=== PATIENT | male | born 1985 | race African-American/Black ===

== ENCOUNTER 2020-06-02 15:26 | Emergency (ER) | payer MEDICAID, OTHER ==
[2020-06-02] MEDS ORDERED: Metoclopramide HCl 10 MG/2 ML VIAL ONE (15:50)
[2020-06-02] MEDS ORDERED: diphenhydrAMINE 50 MG/ML VIAL ONE (15:50)
== END 2020-06-02 17:25 | disposition home or self-care (01) ==
LOC: NAV ERS 15:26
DX: G43.909 Migraine, unspecified, not intractable, without status migrainosus (principal)
CPT/HCPCS: 96365; 96375; J1200; J2765

== ENCOUNTER 2020-06-11 07:53 | Emergency (ER) | payer MEDICAID, OTHER ==
[2020-06-11] MEDS ORDERED: diphenhydrAMINE 50 MG/ML VIAL ONE (08:20)
[2020-06-11] MEDS ORDERED: Metoclopramide HCl 10 MG/2 ML VIAL ONE (08:20)
[2020-06-11] MEDS ORDERED: Sodium Chloride 0.9% 1,000 ML ONE ×2 (08:21→08:51)
--- NOTE | 2020-06-11 08:28 | RAD ---
XR Chest 1 View Portable History: Chest pain Comparison: None. Findings: Lungs are clear. No pneumothorax or effusion. Cardiac silhouette and mediastinal contours a re within normal limits. No acute osseous abnormality. Impression: No acute intrathoracic abnormality.
[2020-06-11 08:30] LABS: #Basophils 0.1 thou/uL (0.0-0.2); #Eosinphils 0.4 thou/uL (0.0-0.7); #Lymphocytes 3.1 thou/uL (1.20-3.40); #Monocytes 0.7 thou/uL (0.11-0.59); #Neutrophils 2.1 thou/uL (1.40-6.50); %Basophils 1.4 % (0.0-1.0); %Eosinophils 5.6 % (0.0-10.0); %Lymphocytes 48.8 % (21.0-51.0); %Neutrophils 33.3 % (42.0-75.0); Hemoglobin 12.2 g/dL (14.0-18.0); Mean Corpuscular HGB CONC 30.3 g/dL (32.0-36.0); Mean Corpuscular Hemoglobin 23.5 pg (27.0-31.0); Mean Corpuscular Volume 77.5 fL (78.0-98.0); Mean Platelet Volume 8.9 fL (7.4-10.4); Platelet Count 279 thou/uL (130-400); RBC Distribution Width 16.5 % (11.5-14.5); White Blood Cell (WBC) Count 6.4 thou/uL (4.8-10.8)
--- NOTE | 2020-06-11 08:40 | CT ---
CT Brain WO Con History: Headache Comparison: None. Findings: No acute hemorrhage or infarct. No midline shift or mass effect. Ventricular size and extra -axial CSF spaces are normal. Calvarium is intact. Paranasal sinuses and mastoids are clear. Impression: No acute intracranial abnormality.
[2020-06-11 08:41] LABS: ALT (SGPT) 22 U/L (8-55); AST (SGOT) 23 U/L (5-34); Albumin 4.5 g/dL (3.5-5.0); Alkaline Phosphatase 71 U/L (40-110); Anion Gap 16 mmol/L (10-20); BUN (Urea Nitrogen) 11 mg/dL (8.9-20.6); Bilirubin, Total 0.4 mg/dL (0.2-1.2); CK (CPK) 258 U/L (30-200); Calc. Creatinine Clearance 0 mL/min (70-130); Calcium 9.2 mg/dL (7.8-10.44); Carbon Dioxide 23 mmol/L (22-29); Chloride 106 mmol/L (98-107); Globulin 2.9 g/dL (2.4-3.5); Glucose 131 mg/dL (70-105); Lipase 32 U/L (8-78); Protein, Total 7.4 g/dL (6.0-8.3); Sodium 141 mmol/L (136-145)
[2020-06-11] MEDS ORDERED: Magnesium 2 GM/50 ML BAG (IN WATER) ONE (08:49)
[2020-06-11] MEDS ORDERED: methylPREDNISolone Sod Succ/PF 125 MG/2 ML VIAL ONE (08:49)
[2020-06-11 10:55] LABS: Amphetamine Not Detected (NotDetected); Barbiturates Screen Not Detected (NotDetected); Benzodiazepine Screen Not Detected (NotDetected); Cocaine Metabolite Screen Not Detected (NotDetected); Medtox Control Line Valid? VALID (VALID); Methadone Not Detected (NotDetected); Methamphetamine Not Detected (NotDetected); Opiate Screen Not Detected (NotDetected); Oxycodone Screen Not Detected (NotDetected); Phencyclidine (PCP) Not Detected (NotDetected); THC/Cannabinoid Screen Detected (NotDetected); Tricyclic Screen Not Detected (NotDetected)
== END 2020-06-11 10:39 | disposition home or self-care (01) ==
LOC: NAV ERS 07:53
DX: R51.9 Headache, unspecified (principal)
CPT/HCPCS: 36415; 70450; 71045; 80053; 80306; 82550; 83690; 84484; 85025; 93005; 96365; 96367; 96375; J1200; J2765; J2930; J3475; J7050

== ENCOUNTER 2021-01-18 03:25 | Emergency (ER) | payer MEDICAID ==
[2021-01-18] MEDS ORDERED: Ibuprofen 200 MG TAB ONE (15:46)
== END 2021-01-18 16:11 | disposition home or self-care (01) ==
LOC: NAV ERS 15:25
DX: M79.674 Pain in right toe(s) (principal); G43.909 Migraine, unspecified, not intractable, without status migrainosus
CPT/HCPCS: 99283

== ENCOUNTER 2021-11-07 17:28 | Emergency (ER) | payer MEDICAID ==
[2021-11-07] MEDS ORDERED: diphenhydrAMINE 50 MG/ML VIAL ONE (18:18)
[2021-11-07] MEDS ORDERED: Prochlorperazine 10 MG/2 ML VIAL ONE (18:18)
[2021-11-07] MEDS ORDERED: Sodium Chloride 0.9% 1,000 ML ONE (18:18)
[2021-11-07] MEDS ORDERED: Ketorolac Tromethamine 30 MG/ML VIAL ONE (18:18)
== END 2021-11-07 20:00 | disposition home or self-care (01) ==
LOC: NAV ERS 17:28
DX: G43.909 Migraine, unspecified, not intractable, without status migrainosus (principal)
CPT/HCPCS: 99284; J0780; J1200; J1885; J7050

== ENCOUNTER 2021-11-22 00:06 | Emergency (ER) | payer MEDICAID ==
[2021-11-22] MEDS ORDERED: Ondansetron ODT 4 MG TAB ONE (00:17)
[2021-11-22] MEDS ORDERED: Acetaminophen 325 MG TAB ONE (00:22)
[2021-11-22] MEDS ORDERED: Ketorolac Tromethamine 60 MG/2 ML VIAL ONE (00:22)
[2021-11-22] MEDS ORDERED: diphenhydrAMINE 50 MG/ML VIAL ONE (00:43)
[2021-11-22] MEDS ORDERED: Metoclopramide HCl 10 MG/2 ML VIAL ONE (00:43)
== END 2021-11-22 01:09 | disposition home or self-care (01) ==
LOC: NAV ERS 00:06
DX: G43.909 Migraine, unspecified, not intractable, without status migrainosus (principal); J06.9 Acute upper respiratory infection, unspecified; R11.2 Nausea with vomiting, unspecified; S01.111D Laceration without foreign body of right eyelid and periocular area, subsequent encounter; Z79.899 Other long term (current) drug therapy
CPT/HCPCS: 96372; 99284; J1200; J1885; J2765; Q0162; U0003; U0005

== ENCOUNTER 2024-04-13 15:45 | Emergency (ER) | payer BC, SELFPAY | END 2024-04-13 16:40 | disposition home or self-care (01) | LOC: NAV ERS 15:45 | DX: S01.511A Laceration without foreign body of lip, initial encounter (principal); W51.XXXA Accidental striking against or bumped into by another person, initial encounter; Y93.72 Activity, wrestling | CPT/HCPCS: 99282 ==

== ENCOUNTER 2024-06-04 08:19 | Emergency (ER) | payer BC ==
[2024-06-04] MEDS ORDERED: Ketorolac Tromethamine 30 MG (1 mL) VIAL ONE (08:52)
[2024-06-04] MEDS ORDERED: diphenhydrAMINE 50 MG/ML VIAL ONE (08:52)
[2024-06-04] MEDS ORDERED: Metoclopramide HCl 10 MG (2 mL) VIAL ONE (08:52)
[2024-06-04] MEDS ORDERED: Sodium Chloride 0.9% 1,000 ML ONE (08:52)
== END 2024-06-04 09:45 | disposition home or self-care (01) ==
LOC: NAV ERS 08:19
DX: G43.909 Migraine, unspecified, not intractable, without status migrainosus (principal)
CPT/HCPCS: 96365; 96375; J1200; J1885; J2765; J7030

== ENCOUNTER 2025-02-20 04:59 | Emergency (ER) | payer BC, OTHER ==
[2025-02-20] MEDS ORDERED: Acetaminophen 500 MG TAB ONE (06:02)
== END 2025-02-20 07:00 ==
LOC: NAV ERS 04:59
DX: S00.03XA Contusion of scalp, initial encounter (principal); Y04.2XXA Assault by strike against or bumped into by another person, initial encounter
CPT/HCPCS: 70450; 70486; 72125